=== PATIENT | male | born 1995 | race Caucasian/White ===

== ENCOUNTER 2017-08-15 23:39 | Emergency (ER) | payer BC ==
[2017-08-15 23:44] VITALS: BP 140/86
--- NOTE | 2017-08-15 23:48 | EDPHY ---
H & P Stated Complaint: BUMP TO MID BACK, NOTICED TWO DAYS AGO Time Seen by Provider: 08/15/17 23:48 HPI/ROS: HPI CHIEF COMPLAINT: Back mass. HISTORY OF PRESENT ILLNESS: Patient is a 21-year-old male, is otherwise healthy no significant medical history noticed a bump on his back 2 days ago. It is mid thoracic. It is soft nontender. There is no signs of infection on exam. Of note his mom is here in the emergency room and sick we called him to come in to be next to his mom as she is visiting from out of town he came in and then checked into the emergency room for this reason. States he noticed 2 days ago does not hurt him. He was concerned about what it is and wanted it evaluated. Past Medical History: Denies medical history Past Surgical History: Denies surgical history Social History: Denies daily use drugs alcohol tobacco. [employer] student. Family History: Noncontributory ROS REVIEW OF SYSTEMS: A comprehensive 10 point review of systems is otherwise negative aside from elements mentioned in the history of present illness. Exam Constitutional triage nursing summary reviewed, vital signs reviewed, awake/ alert. Eyes normal conjunctivae and sclera, EOMI, PERRLA. HENT normal inspection, atraumatic, moist mucus membranes, no epistaxis, neck supple/ no meningismus, no raccoon eyes. Respiratory clear to auscultation bilaterally, normal breath sounds, no respiratory distress, no wheezing. Cardiovascular back exam: Over the mid thoracic region there is a soft semi mobile soft tissue mass very small 2 cm x 2 cm. Most likely lipoma. No overlying cellulitis or abscess. rate normal, regular rhythm, no murmur, no edema, distal pulses normal. Gastrointestinal soft, non-tender, no rebound, no guarding, normal bowel sounds, no distension, no pulsatile mass. Genitourinary no CVA tenderness. Musculoskeletal no midline vertebral tenderness, full range of motion, no calf swelling, no tenderness of extremities, no meningismus, good pulses, neurovascularly intact. Skin pink, warm, & dry, no rash, skin atraumatic. Neurologic awake, alert and oriented x 3, AAOx3, moves all 4 extremities equally, motor intact, sensory intact, CN II-XII intact, normal cerebellar, normal vision, normal speech. Psychiatric normal mood/affect. Heme/Lymph/Immune no lymphadenopathy. Differential Diagnosis: Includes but is not limited to in a particular order soft tissue mass, lipoma, bony abnormality, tumor, cancer Medical Decision Making: Plan for this patient clinically on exam I feel that this is most likely a lipoma. I will ultrasound at to further characterize. Recommend follow up closely with his primary care doctor. Additionally I recommend that he watch this area closely for changes incisor gets bigger or starts to be painful he should seek further evaluation of at however for here in the emergency room will ultrasound for further characterization. Re-evaluation: Patient's ultrasound shows lipoma. Called to me by Dr. Raj Paez. Updated patient. He understands. Shows monitor the area. Gets worse larger bigger or more painful return to the emergency room he understands. Source: Patient - Personal History Current Tetanus Diphtheria and Acellular Pertussis (TDAP): Yes - Medical/Surgical History Hx Asthma: Yes Hx Chronic Respiratory Disease: No Hx Diabetes: No Hx Cardiac Disease: No Hx Renal Disease: No Hx Cirrhosis: No Hx Alcoholism: No Hx HIV/AIDS: No Hx Splenectomy or Spleen Trauma: No Other PMH: ASTHMA - Social History Smoking Status: Light smoker Constitutional: Initial Vital Signs Temperature (C) 36.7 C 08/15/17 23:43 Heart Rate 98 08/15/17 23:43 Respiratory Rate 16 08/15/17 23:43 Blood Pressure 140/86 H 08/15/17 23:43 O2 Sat (%) 96 08/15/17 23:43 O2 Delivery Mode Room Air Allergies/Adverse Reactions: No Known Allergies Allergy (Verified 08/15/17 23:42) Home Medications: Medication Instructions Recorded NK [No Known Home Meds] 07/13/15 Departure - Departure Disposition: Home, Routine, Self-Care Clinical Impression: Lipoma Qualifiers: Lipoma location: other site Qualified Code(s): D17.79 - Benign lipomatous neoplasm of other sites Condition: Good Instructions: Lipoma (ED) Additional Instructions: 1. Follow up with her primary care doctor. 2. Return emergency room if you have any further questions or concerns. Referrals: NONE *PRIMARY CARE P,. [Primary Care Provider] - As per Instructions
== END 2017-08-16 00:30 | disposition home or self-care (01) ==
DX: D17.79 Benign lipomatous neoplasm of other sites (principal); J45.909 Unspecified asthma, uncomplicated; F17.200 Nicotine dependence, unspecified, uncomplicated